=== PATIENT | female | born 1965 | race Caucasian/White ===

== ENCOUNTER 2019-04-23 09:09 | Outpatient (CLI) | payer BC | END 2019-04-23 23:59 | disposition home or self-care (01) | LOC: STAR 09:09 | PROVIDERS: ATTEND Obstetrics & Gynecology | DX: Z01.818 Encounter for other preprocedural examination (principal); N93.9 Abnormal uterine and vaginal bleeding, unspecified; D25.9 Leiomyoma of uterus, unspecified; Z90.710 Acquired absence of both cervix and uterus; Z90.722 Acquired absence of ovaries, bilateral | CPT/HCPCS: 36415; 80053; 85025 ==

== ENCOUNTER 2019-04-28 10:43 | Day surgery (SDC) | payer BC ==
[~2019-04-28] VITALS: Ht 167.6 cm; Wt 115.6 kg
[2019-04-29 13:31] VITALS: BP 126/83
== END 2019-04-29 15:07 | disposition home or self-care (01) ==
LOC: OUT 10:43 → 4NOR 16:14 → OUT 16:22 → 4NOR 16:22 → UNDOADMIN 16:22 → DCLOUNGE 04-29 14:45 → 4NOR 04-29 14:45 → UNDODISIN 04-29 15:00 → OUT 04-29 15:07
PROVIDERS: ATTEND Obstetrics & Gynecology
DX: D25.9 Leiomyoma of uterus, unspecified (principal); N80.0 Endometriosis of uterus; N83.02 Follicular cyst of left ovary; I10 Essential (primary) hypertension; G47.33 Obstructive sleep apnea (adult) (pediatric); F41.8 Other specified anxiety disorders; E66.01 Morbid (severe) obesity due to excess calories; Z79.891 Long term (current) use of opiate analgesic; Z79.1 Long term (current) use of non-steroidal anti-inflammatories (NSAID); Z79.899 Other long term (current) drug therapy
CPT/HCPCS: 58552; 81025; 88307; J0171; J0330; J0690; J1100; J1170; J1885; J2250; J2405; J2704; J2710; J3010; J3480; J3490; J7120; J7121; G0378

== ENCOUNTER 2019-05-07 17:13 | Emergency (ER) | payer BC ==
[~2019-05-07] VITALS: Ht 165.1 cm; Wt 114.7 kg
[2019-05-07 17:36] VITALS: BP 132/83
== END 2019-05-07 20:05 ==
LOC: ED 19:59
DX: M54.5 Low back pain (principal)
CPT/HCPCS: 93005; 99281